=== PATIENT | female | born 1970 | race Caucasian/White ===

== ENCOUNTER → 2017-10-01 | Outpatient (CLI) | payer OTHER ==
[~2017-10-01] MED LIST: None per pt
== END ==
LOC: STAR 13:28
PROVIDERS: ATTEND Surgery
DX: Z02.9 Encounter for administrative examinations, unspecified (principal)

== ENCOUNTER 2017-10-10 09:16 | Day surgery (SDC) | payer OTHER ==
[~2017-10-10] VITALS: Ht 167.6 cm; Wt 82.9 kg
[~2017-10-10 09:16] MED LIST changes: +FENTANYL PF 100 MCG/2ML ONE; +MIDAZOLAM 1 MG/ML, 2ML ONE
[2017-10-10] MEDS ORDERED: LACTATED RINGERS 1,000 ML IV SCH (09:30)
[2017-10-10 09:33] LABS: HCG UR LOT HCG7030192
[2017-10-10 09:47] VITALS: BP 154/96
[2017-10-10] MEDS ORDERED: EPINEPHRINE 1 MG/ML, 1ML ONE (09:48)
[2017-10-10] MEDS ORDERED: BUPIVACAINE/PF 0.5% ONE (09:48)
[2017-10-10 09:50] LABS: HCG UR OBC PASS
[2017-10-10] MEDS ORDERED: KETOROLAC 30 MG/1 ML ONE (12:00)
[2017-10-10] MEDS ORDERED: OXYcodone 5 MG/5 ML ORAL.SOL UDC PO PRN (12:30)
[2017-10-10] MEDS ORDERED: METOPROLOL 1 MG/ML, 5ML IV PRN (12:30)
[2017-10-10] MEDS ORDERED: MIDAZOLAM 1 MG/ML, 2ML IV PRN (12:30)
[2017-10-10] MEDS ORDERED: DIAZEPAM 5 MG/ML, 2ML IVPush PRN (12:30)
[2017-10-10] MEDS ORDERED: ACETAMINOPHEN 325 MG TABLET PO PRN (12:30)
[2017-10-10] MEDS ORDERED: HYDROcodone/APAP 7.5-325MG/15ML UDC PO PRN (12:30)
[2017-10-10] MEDS ORDERED: EPHEDRINE 50 MG/ML, 1ML IVPush PRN (12:30)
[2017-10-10] MEDS ORDERED: PROMETHAZINE 25 MG/ML, 1ML IV PRN (12:30)
[2017-10-10] MEDS ORDERED: MEPERIDINE/PF 25MG/0.5ML IVPush PRN (12:30)
[2017-10-10] MEDS ORDERED: HYDROmorphone 1 MG/ML, 1ML IV PRN (12:30)
[2017-10-10] MEDS ORDERED: LABETALOL 5MG/ML, 20ML IV PRN (12:30)
[2017-10-10] MEDS ORDERED: ONDANSETRON 2MG/ML, 2ML IVPush PRN (12:30)
[2017-10-10] MEDS ORDERED: ALBUTEROL SULFATE 2.5 MG/3 ML NPPB PRN (12:30)
[2017-10-10] MEDS ORDERED: hydrALAzine 20 MG/ML, 1ML IV PRN (12:30)
[2017-10-10] MEDS ORDERED: FENTANYL PF 100 MCG/2ML IV PRN (12:30)
[2017-10-10] MEDS ORDERED: PROPOFOL 10 MG/ML, 20ML ONE (12:47)
[2017-10-10] MEDS ORDERED: DEXAMETHASONE 4 MG/ML, 1ML ONE (12:47)
[2017-10-10] MEDS ORDERED: ONDANSETRON 2MG/ML, 2ML ONE (12:47)
[2017-10-10] MEDS ORDERED: CEFAZOLIN 1,000 MG ONE (12:47)
[2017-10-10] MEDS ORDERED: FENTANYL PF 100 MCG/2ML ONE (12:50)
[2017-10-10] MEDS ORDERED: ACETAMINOPHEN 650 MG/20.3 ML UDC ONE (12:50)
[2017-10-10] MEDS ORDERED: OXYcodone 5 MG/5 ML ORAL.SOL UDC ONE (12:51)
== END 2017-10-10 14:55 ==
LOC: OUT 09:16
PROVIDERS: ATTEND Surgery
DX: N63.20 Unspecified lump in the left breast, unspecified quadrant (principal); I10 Essential (primary) hypertension; J45.909 Unspecified asthma, uncomplicated; Z98.890 Other specified postprocedural states
CPT/HCPCS: 19120; 81025; 88307; J0171; J0690; J1100; J1885; J2250; J2405; J2704; J3010; J3490; J7120